=== PATIENT | male | born 1940 | race Caucasian/White ===

== ENCOUNTER 2023-09-27 08:33 | Outpatient (CLI) | payer OTHER ==
[2023-09-27] MEDS ORDERED: Iopamidol 370 76% 100 ML VIAL ONE (13:31)
== END 2023-09-27 08:34 | disposition home or self-care (01) ==
LOC: CT 08:33
PROVIDERS: ATTEND Thoracic Surgery (Cardiothoracic Vascular Surgery)
DX: I65.23 Occlusion and stenosis of bilateral carotid arteries (principal); I65.01 Occlusion and stenosis of right vertebral artery
CPT/HCPCS: 70498; 82565; Q9967